=== PATIENT | male | born 1960 | race Caucasian/White ===

== ENCOUNTER → 2018-05-27 | Outpatient (CLI) | payer BC ==
--- NOTE | 2018-05-27 13:08 | US ---
EXAMINATION TYPE: US extremity nonvasc ltd LT DATE OF EXAM: 05/27/2018 COMPARISON: NONE CLINICAL HISTORY: M25.562 PAIN LT KNEE. Patient states he was stretching and felt a pop in the knee. R/O bakers cyst. Posterior left knee scanned. Cystic appearing lesion seen - 4.5 x 3.1 x 1.3 cm Scanning is limited. 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
== END ==
LOC: RADUSWWP 11:08
PROVIDERS: ATTEND Family Medicine
DX: M25.562 Pain in left knee (principal)

== ENCOUNTER 2018-08-27 12:24 | Day surgery (SDC) | payer BC ==
[2018-08-26 08:37] VITALS: BMI 31.1
--- NOTE | 2018-08-26 15:47 | HP ---
HISTORY AND PHYSICAL DATE OF SURGERY: 08/27/2018 Timmy Whittington is a 57-year-old patient seen with progressive left knee pain. We discussed treatment options. He elected to proceed with arthroscopy. Consent was obtained. PAST MEDICAL HISTORY: Noncontributory. PAST SURGICAL HISTORY: Right knee arthroscopy. DAILY MEDICATIONS: None. ALLERGIES: NONE REPORTED. SOCIAL HISTORY: He denies tobacco use. PHYSICAL EVALUATION OF THE LEFT KNEE: Range of motion is 0 to 120 degrees. There is a mild intra-articular effusion present. He is tender along the medial joint line. Positive medial Nickie's. Ligaments are stable. Hip rotation without pain. Distal neurovascular exam is intact. LEFT KNEE RADIOGRAPHS: Left knee radiographs revealed moderate lateral and patellofemoral compartment osteoarthritis. IMPRESSION: 1. Internal derangement of left knee with medial meniscal tear. 2. Left knee osteoarthritis. PLAN: Left knee arthroscopy with partial meniscectomy and debridement. MMODL / IJN: [id number] /
[~2018-08-27 12:24] MED LIST: DEXAMETHASONE SOD PHOSPHATE 10 MG/ML 1 ML VIAL IV ONE; LACTATED RINGERS 1,000 ML IV SCH; LIDOCAINE 1% 20 ML VIAL (10MG/ML) FOR IV START INTRADERMA PRN; MIDAZOLAM 2 MG/2 ML VIAL IV PRN; ONDANSETRON 4 MG/2 ML VIAL IVP ONE; SCOPOLAMINE 1.5MG/72HR PATCH TRANSDERM ONE; ceFAZolin IN SWFI 2 GM/20 ML SYRINGE IVP ONE
[2018-08-27] MEDS ORDERED: fentaNYL (PF) 50 MCG/ML 2 ML AMP ONE (14:14)
[2018-08-27] MEDS ORDERED: MIDAZOLAM 2 MG/2 ML VIAL ONE (14:14)
[2018-08-27] MEDS ORDERED: PROPOFOL 10 MG/ML 20 ML VIAL IV ONE (14:14)
[2018-08-27] MEDS ORDERED: SUCCINYLCHOLINE CHLORIDE 100 MG/5 ML SYR IV ONE (14:14)
[2018-08-27] MEDS ORDERED: LIDOCAINE 1% INJ 10MG/ML (20 ML MDV) ONE (14:14)
[2018-08-27] MEDS ORDERED: BUPIVACAIN-EPI 0.25%-1:200,000 30 ML VIAL INTRAARTIC ONE (14:45)
[2018-08-27 15:13] VITALS: TEMP 96.9
--- NOTE | 2018-08-27 15:13 | P.OP ---
Date of Procedure: 08/27/18 Preoperative Diagnosis: Internal derangement left knee Postoperative Diagnosis: 1. Tear medial meniscus left knee 2. 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 Reactive synovitis medial, lateral and suprapatellar compartments left knee Procedure(s) Performed: 1. Arthroscopic partial medial meniscectomy left knee 2. Arthroscopic chondroplasty medial femoral condyle left knee 3. Arthroscopic partial synovectomy medial, lateral and suprapatellar compartments left knee Anesthesia: SAURAVA, local Surgeon: Dusty Haines Estimated Blood Loss (ml): 5 Pathology: none sent Condition: stable Disposition: PACU Indications for Procedure: 57-year-old patient seen with progressive left knee pain. After treatment options were discussed, he elected to proceed with arthroscopy. Operative Findings: See description of procedure Description of Procedure: Patient was taken to the operative suite. Patient underwent a general anesthetic by the department of anesthesia. Patient was given preoperative antibiotics. The left lower extremity was placed in a well-padded arthroscopic leg macias. The left leg was prepped and draped in the normal sterile orthopedic fashion. A lateral parapatellar and suprapatellar incision was made. Trochars were inserted. Arthroscopy was initiated. Suprapatellar pouch revealed diffuse thick reactive synovitis. The patellofemoral joint appeared to articulate congruently. There as grade 1/2 chondromalacia with no osteochondral tears present. The scope was guided into the medial gutter. No loose bodies or plica were identified. The scope was then guided into the medial compartment. A medial parapatellar incision was made. Trocar inserted followed by probe. There was a radial tear posterior horn medial meniscus. There was reactive synovitis anteriorly. There were grade 2/3 chondromalacia changes of the medial femoral condyle with some osteochondral tears present. I performed a partial medial meniscectomy down to stable tissue. I performed a chondroplasty of the medial femoral condyle down to stable tissue. I performed a partial synovectomy decompressing the reactive synovitis. The residual meniscus was stable. There was good decompression of synovitis. Scope and probe were then guided into the intercondylar notch. Cruciates were identified , probed and found to be stable. The scope and probe were then guided into lateral compartment. There were grade 4 chondromalacia changes of both the lateral femoral condyle and tibial plateau with exposed bone on both size. The lateral meniscus was made to with some mild superficial fraying but no tear. There was thick reactive synovitis anteriorly. I performed a partial synovectomy decompressing that reactive synovitis. The scope was in guided back into the suprapatellar compartment. I introduced a motorized shaver into the super patellar compartment. I debrided some piecemeal fragments of meniscus I encountered. I performed a partial synovectomy decompressing the reactive synovitis. The shaver was removed. I took one more look on the entire knee, no residual debris. Instruments were now removed from the joint. The joint was infiltrated with .25% Marcaine. Steri-Strips were applied to the portal sites. Sterile dressings were applied. The patient was placed into a SALLIE hose. No tourniquet was utilized. The patient was awakened, transferred to a bed and taken to recovery stable satisfactory condition.
[2018-08-27] MEDS: HYDROmorphone 0.5 MG/0.5 ML SYRINGE IVP PRN ×2 (15:18→15:31)
[2018-08-27 15:58] VITALS: RESP 18
[2018-08-27] MEDS ORDERED: HYDROcodone/APAP 5-325MG 1 EACH TAB PO ONE (16:16)
[2018-08-27 16:59] VITALS: BP 169/86; PULSE 71
== END 2018-08-27 17:26 | disposition home or self-care (01) ==
LOC: OR 12:24
PROVIDERS: ATTEND Orthopaedic Surgery
DX: S83.242A Other tear of medial meniscus, current injury, left knee, initial encounter (principal); X58.XXXA Exposure to other specified factors, initial encounter; M94.262 Chondromalacia, left knee; M65.862 Other synovitis and tenosynovitis, left lower leg; M17.12 Unilateral primary osteoarthritis, left knee; I10 Essential (primary) hypertension
CPT/HCPCS: 29881; J2250; J1100; J2405; J2001; J3010; J0330; J2704; J1170; J0690

== ENCOUNTER → 2023-12-12 | Outpatient (CLI) | payer BC ==
--- NOTE | 2023-12-12 12:17 | CT ---
EXAMINATION TYPE: CT urogram wo/w con CT DLP: 4084 mGycm, Automated exposure control for dose reduction was used. DATE OF EXAM: 12/12/2023 11:16 AM COMPARISON: CT 03/21/2016. CLINICAL INDICATION:Male, 63 years old with history of R31.9 HEMATURIA; PHH, hematuria TECHNIQUE: Urogram with imaging of the abdomen and pelvis. Coronal and sagittal reformats were performed. 2D and 3D reconstructions are performed to assist visualization of the urinary tract on a separate workstat ion. Contrast used:100 mL of Isovue 300 with IV Contrast, Oral contrast used: None. FINDINGS: LOWER CHEST: No significant findings. GENITOURINARY: RIGHT KIDNEY AND URETER: No calculi. No hydronephrosis or hydroureter. No renal mass or other lesions . No urothelial lesions: no filling defect, dilation, stricture or wall thickening. LEFT KIDNEY AND URETER: No calculi. No hydronephrosis or hydroureter. No renal mass or other lesions. No urothelial lesions: no filling defect, dilation, stricture or wall thickening. URINARY BLADDER: Not optimally distended. Limited evaluation secondary to partial filling of the blad dodie with excreted IV contrast. No calculi or obvious mass. REPRODUCTIVE: Enlarged measuring up to 5.0 cm. ABDOMEN LIVER: Diffusely hypoattenuating, consistent with hepatic steatosis.. GALLBLADDER AND BILE DUCTS: Unremarkable PANCREAS: Unremarkable. SPLEEN: Unremarkable. ADRENAL GLANDS: Unremarkable. STOMACH AND BOWEL: . No evidence of bowel obstruction. Scattered colonic diverticula present. The lakeisha endix is normal. PERITONEUM: No evidence of pneumoperitoneum, free fluid, or adenopathy. VASCULATURE: No evidence of aortic aneurysm. MUSCULOSKELETAL: No acute osseous abnormalities LYMPH NODES: No gross evidence for lymphadenopathy. SOFT TISSUE/ABDOMINAL WALL: Fat-containing umbilical hernia. IMPRESSION: 1. No evidence of urolithiasis or renal/urothelial neoplasm. 2. Colonic diverticulosis. 3. Prostatomegaly. Correlate with serum PSA.
== END | disposition home or self-care (01) ==
LOC: RADCTMAIN 10:15
PROVIDERS: ATTEND Family Medicine
DX: N40.0 Benign prostatic hyperplasia without lower urinary tract symptoms (principal); K57.30 Diverticulosis of large intestine without perforation or abscess without bleeding; R31.9 Hematuria, unspecified
CPT/HCPCS: 74178; 74400; Q9967